=== PATIENT | female | born 1950 | race Caucasian/White ===

== ENCOUNTER → 2017-06-02 | Outpatient (CLI) | payer MEDICARE ==
--- NOTE | 2017-06-04 08:14 | MM ---
Reason for exam: screening (asymptomatic). Last mammogram was performed 1 year and 2 months ago. History: Patient is postmenopausal and is nulliparous. Family history of breast cancer in mother at age 85. Benign excisional biopsy of the right breast, November 13, 2006. Benign excisional biopsy of the left breast, 1994. Physical Findings: A clinical breast exam by your physician is recommended on an annual basis and results should be correlated with mammographic findings. MG 3D Screening Mammo W/Cad Bilateral CC and MLO view(s) were taken. Prior study comparison: April 10, 2016, bilateral MG 3d screening mammo w/cad. March 01, 2015, bilateral MG screening mammo w CAD. There are scattered fibroglandular densities. There is no discrete abnormality. No significant changes when compared with prior studies. ASSESSMENT: Negative, BI-RAD 1 RECOMMENDATION: Routine screening mammogram of both breasts in 1 year.
== END ==
LOC: RADMAMWWP 14:15
PROVIDERS: ATTEND Obstetrics & Gynecology
DX: Z12.31 Encounter for screening mammogram for malignant neoplasm of breast (principal); Z80.3 Family history of malignant neoplasm of breast
CPT/HCPCS: 77063; G0202

== ENCOUNTER → 2018-01-12 | Outpatient (CLI) | payer MEDICARE ==
[2018-01-12 10:09] LABS: Basophils % (A) 0 %; Eosinophils # (A) 0.2 k/uL (0-0.7); Eosinophils % (A) 3 %; HCT 38.5 % (34.0-46.0); Lymphocytes # (A) 1.8 k/uL (1.0-4.8); Lymphocytes % (A) 33 %; MCH 29.9 pg (25.0-35.0); MCHC 33.9 g/dL (31.0-37.0); MCV 88.2 fL (80.0-100.0); Mean Platelet Volume 6.3; Monocytes # (A) 0.2 k/uL (0-1.0); Monocytes % (A) 4 %; Neutrophils # (A) 3.1 k/uL (1.3-7.7); Neutrophils % (A) 57 %; Platelet Count 299 k/uL (150-450); RBC 4.36 m/uL (3.80-5.40); RDW 13.2 % (11.5-15.5); WBC 5.3 k/uL (3.8-10.6)
[2018-01-12 10:28] LABS: ALT 37 U/L (9-52); AST 23 U/L (14-36); Albumin 4.4 g/dL (3.5-5.0); Alkaline Phosphatase 53 U/L (38-126); Anion Gap 9 mmol/L; Blood Urea Nitrogen 18 mg/dL (7-17); Calcium 9.6 mg/dL (8.4-10.2); Carbon Dioxide 27 mmol/L (22-30); Chloride 104 mmol/L (98-107); Cholesterol 223 mg/dL (<200); Glucose 105 mg/dL (74-99); HDL Cholesterol 79 mg/dL (40-60); LDL Cholesterol,Calculated 129 mg/dL (0-99); Potassium 4.5 mmol/L (3.5-5.1); Sodium 140 mmol/L (137-145); Total Bilirubin 0.3 mg/dL (0.2-1.3); Total Protein 6.6 g/dL (6.3-8.2); Triglycerides 74 mg/dL (<150)
== END | disposition home or self-care (01) ==
LOC: LABWHC1 09:06
PROVIDERS: ATTEND Family Medicine
DX: Z00.01 Encounter for general adult medical examination with abnormal findings (principal); Z11.59 Encounter for screening for other viral diseases
CPT/HCPCS: 36415; 80053; 80061; 84443; 85025; 86803

== ENCOUNTER → 2018-07-30 | Outpatient (CLI) | payer MEDICARE ==
--- NOTE | 2018-07-30 13:11 | BD ---
EXAMINATION TYPE: Axial Bone Density DATE OF EXAM: 07/30/2018 COMPARISON: 04/10/2016 CLINICAL HISTORY: Height: 59.7 IN Weight: 149 LBS RISK FACTORS HISTORY OF: Active: YES Postmenopausal woman: AGE 48 MEDICATIONS: Additional Medications: VIT D, EXAM MEASUREMENTS: Bone mineral densitometry was performed using the [employer] System. Bone mineral density as measured about the Lumbar spine is: ----- L1-L4(G/cm2): 1.139 T Score Values are as follows: ----- L2: -0.3 ----- L3: 0.0 ----- L4: -0.1 ----- L1-L4: -0.3 Bone mineral density has: Decreased -2.4% since study of: 04/10/2016 Bone mineral density about the R hip (g/cm2): 0.820 Bone mineral density about the L hip (g/cm2): 0.767 T Score values are as follows: -----R Neck: -1.6 -----L Neck: -1.9 -----R Total: -0.6 -----L Total: -1.0 Bone mineral density has: Increased 1.3% since study of: 04/10/2016 IMPRESSION: Osteopenia left proximal femur. NOTE: T-SCORE=SD OF THE YOUNG ADULT MEAN.
--- NOTE | 2018-08-08 11:10 | MM ---
Reason for exam: screening (asymptomatic). Last mammogram was performed 1 year and 2 months ago. History: Patient is postmenopausal and is nulliparous. Family history of breast cancer in mother at age 85. Benign excisional biopsy of the right breast, November 13, 2006. Benign excisional biopsy of the left breast, 1994. MG 3D Screening Mammo W/Cad Bilateral CC and MLO view(s) were taken. Prior study comparison: June 02, 2017, bilateral MG 3d screening mammo w/cad. April 10, 2016, bilateral MG 3d screening mammo w/cad. The breast tissue is heterogeneously dense. This may lower the sensitivity of mammography. No discrete abnormality. ASSESSMENT: Negative, BI-RAD 1 RECOMMENDATION: Routine screening mammogram of both breasts in 1 year.
== END | disposition home or self-care (01) ==
LOC: RADMAMWWP 10:05
PROVIDERS: ATTEND Obstetrics & Gynecology
DX: Z12.31 Encounter for screening mammogram for malignant neoplasm of breast (principal); M85.852 Other specified disorders of bone density and structure, left thigh
CPT/HCPCS: 77063; 77067; 77080

== ENCOUNTER 2018-10-08 04:14 | Emergency (ER) | payer MEDICARE ==
--- NOTE | 2018-10-08 05:36 | XR ---
EXAM: XR Chest, 2 Views CLINICAL HISTORY: cough TECHNIQUE: Frontal and lateral views of the chest. COMPARISON: 07/28/15 FINDINGS: Lungs: Unremarkable. No consolidation. Pleural space: Unremarkable. No pneumothorax. Heart: Unremarkable. No cardiomegaly. Mediastinum: Unremarkable. Bones/joints: Unremarkable. IMPRESSION: Unremarkable 2 views of the chest
[2018-10-08] MEDS ORDERED: IBUPROFEN 600 MG STARTER PACK 4 TAB BTL PO STA (05:43)
--- NOTE | 2018-10-08 05:45 | ED ---
URI HPI - General Chief Complaint: Upper Respiratory Infection Stated Complaint: Upper Resp Source: patient Mode of arrival: ambulatory Limitations: no limitations - History of Present Illness Initial Comments: Juan Diego is a pleasant 67-year-old female who presents the emergency department today for evaluation of 5 days of fever, chills, cough, nasal congestion, rhinorrhea or sore throat and generalized body aches. Patient reports that the symptoms are worse around Thursday at which time she had a fever of 102 she was treating with Tylenol and drinking plenty of fluids. However symptoms have persisted which prompted her to come to the ER for evaluation and concern that she may be developing a pneumonia. Patient port she did get her flu vaccine this year. She has no significant past medical history no history of COPD asthma and she is a never smoker. - Related Data Previous Rx's Medication Instructions Recorded Levofloxacin [Levaquin] 500 mg PO DAILY #10 tab 07/28/15 Meclizine [Antivert] 25 mg PO TID #15 tab 07/28/15 Allergies Allergy/AdvReac Type Severity Reaction Status Date / Time azithromycin Allergy Unknown Verified 10/08/18 04:24 [From Zithromax Z-Alex] Review of Systems ROS Statement: Those systems with pertinent positive or pertinent negative responses have been documented in the HPI. ROS Other: All systems not noted in ROS Statement are negative. Past Medical History Past Medical History: No Reported History History of Any Multi-Drug Resistant Organisms: None Reported Past Surgical History: Appendectomy Past Psychological History: No Psychological Hx Reported Smoking Status: Never smoker Past Alcohol Use History: Occasional Past Drug Use History: None Reported General Exam - General Exam Comments Initial Comments: Physical Exam GENERAL: Patient is well-developed and well-nourished. Patient is nontoxic and well- hydrated and is in no distress. HENT: Normocephalic, Atraumatic. EYES: PERRL, EOMI PULMONARY: Unlabored respirations. No audible rales rhonchi or wheezing was noted. CARDIOVASCULAR: There is a regular rate and rhythm without any murmurs gallops or rubs. ABDOMEN: Soft and nontender with normal bowel sounds. SKIN: Flushed and very warm to the touch : Deferred NEUROLOGIC: Patient is alert and oriented x3. Moving all extremities spontaneously MUSCULOSKELETAL: Normal extremities with adequate strength and full range of motion. No lower extremity swelling or edema. No calf tenderness. PSYCHIATRIC: Normal psychiatric evaluation. Limitations: no limitations Limitations: no limitations Course Vital Signs 10/08/18 04:21 Temperature 99 F Pulse Rate 91 Respiratory 16 Rate Blood Pressure 136/68 O2 Sat by Pulse 94 L Oximetry Medical Decision Making - Medical Decision Making Patient was seen and evaluated history was obtained from patient History and physical are concerning for influenza however patient's symptoms have been present for 5 days she's not of candidate for Tamiflu Includes a is positive neck sign chest x-ray with no evidence of pneumonia next and results were discussed the patient is comfortable with the plan for discharge home continued outpatient supportive care. Patient was given Motrin while in the hospital for her fever. All questions pertaining care were answered return parameters were discussed infection control was discussed advised patient she is in fact contagious and should avoid contact with any pediatrics, elderly or immunocompromise patients. - Lab Data Lab Results 10/08/18 Range/Units 04:50 Influenza Type A RNA Detected H (Not Detectd) Influenza Type B (PCR) Not Detected (Not Detectd) Disposition Clinical Impression: Influenza Disposition: HOME SELF-CARE Condition: Good Instructions (If sedation given, give patient instructions): Upper Respiratory Infection (ED) Is patient prescribed a controlled substance at d/c from ED?: No Referrals: Erik Cortes MD [Primary Care Provider] - 1-2 days
[2018-10-08 05:52] VITALS: BP 117/73; PULSE 79; RESP 18; TEMP 99.4
== END 2018-10-08 05:55 | disposition home or self-care (01) ==
LOC: EC 04:14
DX: J10.1 Influenza due to other identified influenza virus with other respiratory manifestations (principal); Z88.1 Allergy status to other antibiotic agents
CPT/HCPCS: 71046; 87502; 99283

== ENCOUNTER 2018-12-08 14:23 | Emergency (ER) | payer MEDICARE ==
[2018-12-08] MEDS ORDERED: LIDOCAINE/EPINEPHR/TETRACAINE 5 ML BOTTLE TOPICAL ONE (15:08)
--- NOTE | 2018-12-08 15:11 | ED ---
General Adult HPI - General Chief complaint: Fall Stated complaint: fall Facial and rib injury Time Seen by Provider: 12/08/18 15:02 Source: patient Mode of arrival: ambulatory Limitations: no limitations - History of Present Illness Initial comments: Dictation was produced using [employer] dictation software. please excuse any grammatical, word or spelling errors. Chief Complaint: 68-year-old female with no significant past medical history presents with facial pain after fall. History of Present Illness: Patient is 68-year-old female presents today with facial pain after fall. Approximately 2 hours prior to arrival patient was walking her dog and dog abruptly moved causing her to trip and fall. Patient states she landed on her face. She complains of pain on her face and left anterior chest. She states that the pain in her chest is worse with palpation. Denies any crushing pressure-like symptoms and instead sharp pressure especially with deep inspiration and palpation. Patient states that she her pain is mostly localized to her nose. She states she did have some epistaxis however that has since resolved prior to arrival. Patient has no other complaints at this time. The ROS documented in this emergency department record has been reviewed and confirmed by me. Those systems with pertinent positive or negative responses have been documented in the HPI. All other systems are other negative and/or n oncontributory. PHYSICAL EXAM: General Impression: Alert and oriented x3, not in acute distress HEENT: extra-ocular movements intact, pupils equal and reactive to light bilaterally, mucous membranes moist, left naris nasal septal hematoma, bruising and swelling to the bridge of the nose, TMs are clear without any signs of hemotympanum, no diplopia, Cardiovascular: Heart regular rate and rhythm, S1&S2 audible, no murmurs, rubs or gallops Chest: Lungs clear to auscultation bilaterally, no rhonchi, no wheeze, no rales, there is a palpation of the left anterior chest Abdomen: Bowel sounds present, abdomen soft, non-tender, non-distended, no organomegaly Musculoskeletal: Pulses present and equal in all extremities, no peripheral edema Motor: no focal deficits noted Neurological: CN II-XII grossly intact, no focal motor or sensory deficits noted Skin: Intact with no visualized rashes Psych: Normal affect and mood ED course: 68 year old female presents with facial pain and left-sided chest pain status post fall vital signs upon arrival are within acceptable limits. Patient does have findings of nasal septal hematoma at the left naris. Laboratory evaluation obtained. CBC, coag panel, metabolic panel is unremarkable. Computed tomography scan of the brain, chest x-ray and face CT w as obtained showing no acute processes. However have chest x-rays showing patchy left basilar atelectasis and/or infiltrate. Patient not having any respiratory symptoms. This is likely atelectasis. Discussed patient case with Dr. Calvillo ENT technical assistance consultant given that we do not have all the supplies to perform nasal septal hematoma drainage materials and for advice on alternative methods. Recommends that incision and bilateral naris packing be performed. Did not feel the need for hematoma packing. Patient tolerated procedure well. Blade was use to incise hematoma. Small amount of blood was retrieved and suction. Patient's nose was packed with short Merocel. Patient discharged and told to follow-up with ENT in 2448 hrs. Patient is understandable and agreement with plan. Patient given prescription for antibiotics. EKG interpretation: Ventricular rate 66, normal sinus rhythm, KS interval 166, QS 82, QTc 440. No KS prolongation, no QTC prolongation, no ST or T-wave changes noted. Overall, this EKG is unremarkable - Related Data Previous Rx's Medication Instructions Recorded Amoxic-Pot Clav 875-125Mg 1 tab PO Q12HR #10 tablet 12/08/18 [Augmentin 875-125] Allergies Allergy/AdvReac Type Severity Reaction Status Date / Time azithromycin Allergy Unknown Verified 12/08/18 14:42 [From Zithromax Z-Alex] latex Allergy Rash/Hives Verified 12/08/18 15:33 Review of Systems ROS Statement: Those systems with pertinent positive or pertinent negative responses have been documented in the HPI. ROS Other: All systems not noted in ROS Statement are negative. Past Medical History Past Medical History: No Reported History History of Any Multi-Drug Resistant Organisms: None Reported Past Surgical History: Appendectomy Past Psychological History: No Psychological Hx Reported Smoking Status: Never smoker Past Alcohol Use History: Occasional Past Drug Use History: None Reported General Exam Limitations: no limitations Course Vital Signs 12/08/18 14:39 Temperature 97.6 F Pulse Rate 73 Respiratory 20 Rate Blood Pressure 141/82 O2 Sat by Pulse 99 Oximetry Medical Decision Making - Lab Data Result diagrams: 12/08/18 15:17 12/08/18 15:17 Lab Results 12/08/18 12/08/18 12/08/18 Range/Units 15:17 15:17 15:17 WBC 6.1 (3.8-10.6) k/uL RBC 4.48 (3.80-5.40) m/uL Hgb 12.9 (11.4-16.0) gm/dL Hct 39.3 (34.0-46.0) % MCV 87.8 (80.0-100.0) fL MCH 28.9 (25.0-35.0) pg MCHC 32.9 (31.0-37.0) g/dL RDW 13.5 (11.5-15.5) % Plt Count 325 (150-450) k/uL Neutrophils % 58 % Lymphocytes % 32 % Monocytes % 4 % Eosinophils % 3 % Basophils % 0 % Neutrophils # 3.5 (1.3-7.7) k/uL Lymphocytes # 2.0 (1.0-4.8) k/uL Monocytes # 0.3 (0-1.0) k/uL Eosinophils # 0.2 (0-0.7) k/uL Basophils # 0.0 (0-0.2) k/uL PT (9.0-12.0) sec INR (<1.2) Sodium 138 (137-145) mmol/L Potassium 4.1 (3.5-5.1) mmol/L Chloride 107 (98-107) mmol/L Carbon Dioxide 27 (22-30) mmol/L Anion Gap 4 mmol/L BUN 14 (7-17) mg/dL Creatinine 0.44 L (0.52-1.04) mg/dL Est GFR (CKD-EPI)AfAm >90 (>60 ml/min/1.73 sqM) Est GFR (CKD-EPI)NonAf >90 (>60 ml/min/1.73 sqM) Glucose 94 (74-99) mg/dL Calcium 10.1 (8.4-10.2) mg/dL Blood Type A Positive Blood Type Confirm Blood Type Recheck CABO Indicated Antibody Screen NEGATIVE Spec Expiration Date 12/11/2018 - 231612/08/18 12/08/18 Range/Units 15:17 16:05 WBC (3.8-10.6) k/uL RBC (3.80-5.40) m/uL Hgb (11.4-16.0) gm/dL Hct (34.0-46.0) % MCV (80.0-100.0) fL MCH (25.0-35.0) pg MCHC (31.0-37.0) g/dL RDW (11.5-15.5) % Plt Count (150-450) k/uL Neutrophils % % Lymphocytes % % Monocytes % % Eosinophils % % Basophils % % Neutrophils # (1.3-7.7) k/uL Lymphocytes # (1.0-4.8) k/uL Monocytes # (0-1.0) k/uL Eosinophils # (0-0.7) k/uL Basophils # (0-0.2) k/uL PT 10.3 (9.0-12.0) sec INR 1.0 (<1.2) Sodium (137-145) mmol/L Potassium (3.5-5.1) mmol/L Chloride (98-107) mmol/L Carbon Dioxide (22-30) mmol/L Anion Gap mmol/L BUN (7-17) mg/dL Creatinine (0.52-1.04) mg/dL Est GFR (CKD-EPI)AfAm (>60 ml/min/1.73 sqM) Est GFR (CKD-EPI)NonAf (>60 ml/min/1.73 sqM) Glucose (74-99) mg/dL Calcium (8.4-10.2) mg/dL Blood Type Blood Type Confirm A Positive Blood Type Recheck Antibody Screen Spec Expiration Date Disposition Clinical Impression: Fall, Nasal septal hematoma Disposition: HOME SELF-CARE Condition: Good Instructions (If sedation given, give patient instructions): Facial Contusion (ED) Additional Instructions: follow up with ENT in 24 to 48 hours per recommendation by Dr. Calvillo (ENT) Prescriptions: Amoxic-Pot Clav 875-125Mg [Augmentin 875-125] 1 tab PO Q12HR #10 tablet Is patient prescribed a controlled substance at d/c from ED?: No Referrals: Ryan Keane MD [STAFF PHYSICIAN] - 1-2 days Aleksander Murray DO [Doctor of Osteopathic Medicine] - 1-2 days Noah Chiang MD [STAFF PHYSICIAN] - 1-2 days Time of Disposition: 17:11
[2018-12-08 15:33] LABS: Basophils % (A) 0 %; Eosinophils # (A) 0.2 k/uL (0-0.7); Eosinophils % (A) 3 %; HCT 39.3 % (34.0-46.0); HGB 12.9 gm/dL (11.4-16.0); Lymphocytes % (A) 32 %; MCH 28.9 pg (25.0-35.0); MCHC 32.9 g/dL (31.0-37.0); MCV 87.8 fL (80.0-100.0); Mean Platelet Volume 6.3; Monocytes # (A) 0.3 k/uL (0-1.0); Monocytes % (A) 4 %; Neutrophils # (A) 3.5 k/uL (1.3-7.7); Neutrophils % (A) 58 %; Platelet Count 325 k/uL (150-450); RBC 4.48 m/uL (3.80-5.40); RDW 13.5 % (11.5-15.5); WBC 6.1 k/uL (3.8-10.6)
[2018-12-08 15:42] LABS: Anion Gap 4 mmol/L; Blood Urea Nitrogen 14 mg/dL (7-17); Calcium 10.1 mg/dL (8.4-10.2); Carbon Dioxide 27 mmol/L (22-30); Chloride 107 mmol/L (98-107); Glucose 94 mg/dL (74-99); Potassium 4.1 mmol/L (3.5-5.1); Sodium 138 mmol/L (137-145)
[2018-12-08 15:43] LABS: Prothrombin Time 10.3 sec (9.0-12.0)
--- NOTE | 2018-12-08 15:43 | CT ---
EXAMINATION TYPE: CT brain wo con, CT facial bones wo con DATE OF EXAM: 12/08/2018 HISTORY: Headache, nasal swelling and bruising post fall injury today CT DLP: 1322.6 mGycm. Automated Exposure Control for Dose Reduction was Utilized. TECHNIQUE: CT scan of the head and facial bones are performed without contrast. COMPARISON: None. FINDINGS: There is no acute intracranial hemorrhage or midline shift identified. Ventricles and sul ci are normal in size for patient's age. Macias-white matter differentiation is preserved. The calvariu m is intact. Nasal bones are intact. Orbital floors and richards are intact bilaterally. The globes are intact bilate rally. Intraconal fat is preserved. Zygomatic arches are intact bilaterally. Mandible is intact. Temporomandibular joints are maintained bilaterally. Pterygoid plates are intact. Visualized paranasal sinuses show mild mucosal thickening inferiorly in right maxillary sinus otherwi se are clear. No suspicious air-fluid levels are present. IMPRESSION: 1. No acute intracranial hemorrhage or midline shift. 2. No acute displaced facial bone fracture or dislocation.
--- NOTE | 2018-12-08 16:23 | XR ---
EXAMINATION TYPE: XR chest 2V DATE OF EXAM: 12/08/2018 CLINICAL HISTORY: Chest pain after fall injury. TECHNIQUE: Frontal and lateral views of the chest are obtained. COMPARISON: None FINDINGS: There is persistent patchy left basilar opacity. Right lung remains clear. No pleural effu melanie or pneumothorax is seen bilaterally. The cardiac silhouette size remains within normal limits. The osseous structures are intact. IMPRESSION: Patchy left basilar atelectasis and/or infiltrate.
[2018-12-08] MEDS ORDERED: LIDOCAINE 1% INJ 10MG/ML (20 ML MDV) SQ ONE (16:53)
[2018-12-08 17:24] VITALS: BP 135/85; PULSE 59; RESP 18; TEMP 97.7
== END 2018-12-08 17:20 | disposition home or self-care (01) ==
LOC: EC 14:23
DX: S00.33XA Contusion of nose, initial encounter (principal); Z88.1 Allergy status to other antibiotic agents; Z91.040 Latex allergy status; W01.198A Fall on same level from slipping, tripping and stumbling with subsequent striking against other object, initial encounter; Y93.K1 Activity, walking an animal
CPT/HCPCS: 36415; 86900; 86901; 80048; 85025; 85610; 86850; 71046; 70486; 70450; 99284; 10140; J2001

== ENCOUNTER → 2019-01-10 | Outpatient (CLI) | payer MEDICARE ==
[2019-01-10 16:42] LABS: LDL Cholesterol,Calculated 142.2 mg/dL (0.0-131.0); VLDL Calculation 16.8 mg/dL (5.00-40.00)
[2019-01-10 17:54] LABS: Hemoglobin A1C 5.9 % (4.0-6.0)
== END | disposition home or self-care (01) ==
LOC: LABWHC1 08:49
PROVIDERS: ATTEND Family Medicine
DX: Z13.220 Encounter for screening for lipoid disorders (principal); Z13.1 Encounter for screening for diabetes mellitus
CPT/HCPCS: 36415; 80061; 83036; 84443

== ENCOUNTER → 2019-06-17 | Outpatient (CLI) | payer MEDICARE ==
--- NOTE | 2019-06-19 14:08 | US ---
EXAMINATION TYPE: US transvaginal DATE OF EXAM: 06/17/2019 COMPARISON: NONE CLINICAL HISTORY: 68-year-old female ABD BLOATING R14.0. TECHNIQUE: Transvaginal sonographic images were medically necessary to better assess the following a natomy: Uterus and ovaries. FINDINGS: EXAM MEASUREMENTS: Uterus: 6.5 x 3.5 x 4.2 cm Endometrial Stripe: Not visualized due to fibroids. 1. Uterus: Anteverted, Fibroids seen largest measuring 2.4 x 2.6 x 2.4 cm. There is diffuse myome trial heterogeneity. 3. Right Ovary: Obscured by overlying bowel gas 4. Left Ovary: Obscured by overlying bowel gas 5. Bilateral Adnexa: wnl 6. Posterior cul-de-sac: wnl IMPRESSION: Very heterogeneous myometrium. Suspect a submucosal, centrally located 2.6 cm fibroid. This completel y obscures the endometrial stripe. Unable to exclude any abnormal thickening. If more detailed assess ment of the junctional anatomy is desired, consider female pelvic MRI. Neither ovary could be visualized. No pelvic free fluid.
== END ==
LOC: RADUSWWP 16:17
PROVIDERS: ATTEND Obstetrics & Gynecology
DX: R93.49 Abnormal radiologic findings on diagnostic imaging of other urinary organs (principal)
CPT/HCPCS: 76830

== ENCOUNTER → 2019-09-02 | Outpatient (CLI) | payer MEDICARE ==
--- NOTE | 2019-09-06 10:19 | MM ---
Reason for exam: screening (asymptomatic). Last mammogram was performed 1 year and 1 month ago. History: Patient is postmenopausal and is nulliparous. Family history of breast cancer in mother at age 85. Benign excisional biopsy of the right breast, November 13, 2006. Benign excisional biopsy of the left breast, 1994. Physical Findings: A clinical breast exam by your physician is recommended on an annual basis and results should be correlated with mammographic findings. MG 3D Screening Mammo W/Cad Bilateral CC and MLO view(s) were taken. Prior study comparison: July 30, 2018, bilateral MG 3d screening mammo w/cad. June 02, 2017, bilateral MG 3d screening mammo w/cad. The breast tissue is heterogeneously dense. This may lower the sensitivity of mammography. No significant changes when compared with prior studies. ASSESSMENT: Benign, BI-RAD 2 RECOMMENDATION: Routine screening mammogram of both breasts in 1 year.
== END | disposition home or self-care (01) ==
LOC: RADMAMWWP 11:23
PROVIDERS: ATTEND Obstetrics & Gynecology
DX: Z12.31 Encounter for screening mammogram for malignant neoplasm of breast (principal)
CPT/HCPCS: 77063; 77067

== ENCOUNTER → 2020-10-03 | Outpatient (CLI) | payer MEDICARE ==
--- NOTE | 2020-10-05 11:45 | MM ---
Reason for exam: screening (asymptomatic). Last mammogram was performed 1 year and 1 month ago. History: Patient is postmenopausal and is nulliparous. Family history of breast cancer in mother at age 85. Benign excisional biopsy of the right breast, November 13, 2006. Benign excisional biopsy of the left breast, 1994. Physical Findings: A clinical breast exam by your physician is recommended on an annual basis and results should be correlated with mammographic findings. MG 3D Screening Mammo W/Cad Bilateral CC and MLO view(s) were taken. Prior study comparison: September 02, 2019, bilateral MG 3d screening mammo w/cad. July 30, 2018, bilateral MG 3d screening mammo w/cad. The breast tissue is heterogeneously dense. This may lower the sensitivity of mammography. No significant changes when compared with prior studies. ASSESSMENT: Negative, BI-RAD 1 RECOMMENDATION: Routine screening mammogram of both breasts in 1 year.
--- NOTE | 2020-10-05 16:54 | BD ---
EXAMINATION TYPE: Axial Bone Density DATE OF EXAM: 10/03/2020 COMPARISON: 07/30/2018 CLINICAL HISTORY: Postmenopausal screening Height: 59.5 IN Weight: 160 LBS RISK FACTORS HISTORY OF: Active: YES Postmenopausal woman: AGE 48 MEDICATIONS: Additional Medications: VIT D, CALCIUM, EXAM MEASUREMENTS: Bone mineral densitometry was performed using the [employer] System. Bone mineral density as measured about the Lumbar spine is: ----- L1-L4(G/cm2): 1.116 T Score Values are as follows: ----- L2: -0.5 ----- L3: -0.3 ----- L4: -0.5 ----- L1-L4: -0.5 Bone mineral density has: Decreased -3.1% since study of: 07/30/2018 Bone mineral density about the R hip (g/cm2): 0.818 Bone mineral density about the L hip (g/cm2): 0.726 T Score values are as follows: -----R Neck: -1.6 -----L Neck: -2.2 -----R Total: -0.6 -----L Total: -1.1 Bone mineral density has: Decreased -1.3% since study of: 07/30/2018 IMPRESSION: Osteopenia (T Score between -2.5 and -1). There is slightly increased risk of fracture and the patient may be considered for treatment. Re-Screen 2-5 years. NOTE: T-SCORE=SD OF THE YOUNG ADULT MEAN.
== END | disposition home or self-care (01) ==
LOC: RADMAMWWP 15:55
PROVIDERS: ATTEND Obstetrics & Gynecology
DX: Z12.31 Encounter for screening mammogram for malignant neoplasm of breast (principal); M85.80 Other specified disorders of bone density and structure, unspecified site
CPT/HCPCS: 77063; 77067; 77080

== ENCOUNTER → 2020-10-26 | Outpatient (CLI) | payer MEDICARE ==
[2020-10-26 11:26] LABS: Basophils # (A) 0.03 X 10*3/uL (0.00-0.10); Basophils % (A) 0.3 %; Eosinophils # (A) 0.31 X 10*3/uL (0.04-0.35); Eosinophils % (A) 3.5 %; HCT 43.6 % (37.2-46.3); HGB 14.1 g/dL (12.0-15.0); Lymphocytes # (A) 3.46 X 10*3/uL (0.90-5.00); Lymphocytes % (A) 38.7 %; MCH 29.4 pg (27.0-32.0); MCHC 32.3 g/dL (32.0-37.0); Mean Platelet Volume 8.9 fL (9.5-12.2); Monocytes % (A) 7.8 %; Neutrophils % (A) 49.3 %; Platelet Count 371 X 10*3/uL (140-440); RBC 4.79 X 10*6/uL (4.10-5.20); RDW 13.6 % (11.5-14.5); WBC 8.94 X 10*3/uL (4.50-10.00)
[2020-10-26 11:29] LABS: Albumin 4.6 g/dL (3.80-4.90); Albumin/Globulin Ratio 2.56 (1.60-3.17); Anion Gap 8.6 mmol/L (4.00-12.00); BUN/Creat Ratio 32.86 Ratio (12.00-20.00); Calcium 9.7 mg/dL (8.7-10.3); Carbon Dioxide 28.4 mmol/L (21.6-31.8); Chol/HDL Ratio 2.92; Globulin 1.8 g/dL (1.6-3.3); LDL Cholesterol,Calculated 114.2 mg/dL (0.0-131.0); Non-African American GFR(CKD) 87.2 (60.0-200.0); Potassium 4.2 mmol/L (3.5-5.5); Total Bilirubin 0.4 mg/dL (0.3-1.2); Total Protein 6.4 g/dL (6.2-8.2); VLDL Calculation 23.8 mg/dL (5.00-40.00)
[2020-10-26 16:28] LABS: Hemoglobin A1C 6.1 % (4.0-6.0)
== END | disposition home or self-care (01) ==
LOC: LABWHC1 07:23
PROVIDERS: ATTEND Family Medicine
DX: Z00.01 Encounter for general adult medical examination with abnormal findings (principal); Z13.220 Encounter for screening for lipoid disorders; Z13.1 Encounter for screening for diabetes mellitus
CPT/HCPCS: 36415; 80053; 80061; 83036; 84443; 85025

== ENCOUNTER 2021-02-06 04:38 | Emergency (ER) | payer MEDICARE ==
[2021-02-06 04:47] VITALS: BP 110/57; PULSE 69; RESP 18; TEMP 97.8
[2021-02-06] MEDS ORDERED: DIPH,PERTUS(ACELL)TETVAC-LF 0.5 ML VIAL IM ONE (04:50)
[2021-02-06] MEDS ORDERED: AMOXIC-POT CLAV 875MG STARTER PACK 2 TAB BTL PO STA (04:58)
--- NOTE | 2021-02-06 05:00 | ED ---
Animal Bite HPI - General Chief Complaint: Skin/Abscess/Foreign Body Stated Complaint: Cat scratches Source: patient Mode of arrival: ambulatory Limitations: no limitations - History of Present Illness Initial Comments: This patient is 70-year-old woman who presents with complaint that she was scratched and bitten by her own cat tonharsha a little after 7 PM. He states that the animal was caught in a car door and that it scratched and bit when she tried to handle the animal. Complaint: animal bite Onset/Timin -: hour(s) Left: Forearm, Hand, Right: Forearm, Hand Animal: cat Description: household pet, immunizations UTD Mechanism: bite, scratch Context: provoked Associated Symptoms: none Treatments Prior to Arrival: irrigation, antibiotic ointment - Related Data Patient Tetanus UTD: No Previous Rx's Medication Instructions Recorded Amoxic-Pot Clav 875-125Mg 1 tab PO Q12HR #10 tablet 12/08/18 [Augmentin 875-125] Amoxicillin/Potassium Clav 1 tab PO Q12HR 1 Days #14 tab 02/06/21 [Augmentin 875-125 Tablet] Allergies Allergy/AdvReac Type Severity Reaction Status Date / Time azithromycin Allergy Unknown Verified 02/06/21 04:47 [From Zithromax Z-Alex] latex Allergy Rash/Hives Verified 02/06/21 04:47 Review of Systems ROS Statement: Those systems with pertinent positive or pertinent negative responses have been documented in the HPI. ROS Other: All systems not noted in ROS Statement are negative. Constitutional: Denies: fever, chills Skin: Reports: as per HPI, lesions Neurological: Denies: weakness, numbness Hematological/Lymphatic: Denies: easy bleeding Past Medical History Past Medical History: No Reported History History of Any Multi-Drug Resistant Organisms: None Reported Past Surgical History: Appendectomy Past Psychological History: No Psychological Hx Reported Smoking Status: Never smoker Past Alcohol Use History: Occasional Past Drug Use History: None Reported General Exam Limitations: no limitations General appearance: alert, in no apparent distress Neurological exam: Absent: motor sensory deficit Skin exam: Present: warm, dry, abrasion, other (Patient has multiple abrasions and puncture wounds to the bilateral forearms and hands, as well as the left thigh area.) Course Vital Signs 02/06/21 04:45 Temperature 97.8 F Pulse Rate 69 Respiratory 18 Rate Blood Pressure 110/57 O2 Sat by Pulse 97 Oximetry Disposition Clinical Impression: Cat bite Disposition: HOME SELF-CARE Condition: Good Instructions (If sedation given, give patient instructions): Animal Bite (ED) Prescriptions: Amoxicillin/Potassium Clav [Augmentin 875-125 Tablet] 1 tab PO Q12HR 1 Days #14 tab Is patient prescribed a controlled substance at d/c from ED?: No Referrals: Erik Cortes MD [Primary Care Provider] - 1-2 days
== END 2021-02-06 05:15 | disposition home or self-care (01) ==
LOC: EC 04:38
DX: S51.831A Puncture wound without foreign body of right forearm, initial encounter (principal); S51.832A Puncture wound without foreign body of left forearm, initial encounter; S61.432A Puncture wound without foreign body of left hand, initial encounter; S61.431A Puncture wound without foreign body of right hand, initial encounter; S71.132A Puncture wound without foreign body, left thigh, initial encounter; Z23 Encounter for immunization; W55.01XA Bitten by cat, initial encounter
CPT/HCPCS: 90471; 90715; 99283

== ENCOUNTER 2021-02-07 00:42 | Observation (INO) | payer MEDICARE ==
[2021-02-07] MEDS ORDERED: HYDROcodone/APAP 5-325MG 1 EACH TAB PO STA (01:50)
--- NOTE | 2021-02-07 02:17 | XR ---
EXAMINATION TYPE: XR hand complete LT DATE OF EXAM: 02/07/2021 COMPARISON: NONE HISTORY: Cat scratches. Cat bite to the left hand. TECHNIQUE: 3 views FINDINGS: Metacarpals are intact. There is narrowing and spurring at the IP joints of all the digits. There is relative sparing of the thumb. There are no erosions. There is no subluxation. I see no evidence of a foreign body. 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 No fracture seen. No evidence of osteomyelitis.
--- NOTE | 2021-02-07 02:41 | ED ---
Skin/Abscess/FB HPI - General Chief complaint: Skin/Abscess/Foreign Body Stated complaint: Cat scratches- revisit Time Seen by Provider: 02/07/21 01:34 Source: patient, family Mode of arrival: ambulatory Limitations: no limitations - History of Present Illness Initial comments: This patient is 70-year-old woman who presents to have reevaluation of her hand which was bitten by cat. Patient was seen here, started on Augmentin, but states that her hand has had increased pain and swelling despite taking the prescribed medication. She has not noticed systemic symptoms. No fever or chills. No chest pain, dyspnea, palpitations. MD complaint: other (Bite) Onset/Timin -: hour(s) Tetanus Up to Date: yes Location: L hand Severity: severe Quality: aching Consistency: constant Improves with: none Worsens with: movement Context: none Associated symptoms: denies other symptoms - Related Data Previous Rx's Medication Instructions Recorded Acetaminophen Tab [Tylenol] 650 mg PO Q6HR PRN #30 tab 02/08/21 Amoxicillin/Potassium Clav 1 tab PO Q12HR 10 Days #20 tab 02/08/21 [Augmentin 875-125 Tablet] Famotidine [Pepcid] 20 mg PO BID #30 tab 02/08/21 Ketorolac [Toradol] 10 mg PO Q6HR PRN #12 tab 02/08/21 Allergies Allergy/AdvReac Type Severity Reaction Status Date / Time azithromycin Allergy Unknown Verified 02/07/21 08:15 [From Zithromax Z-Alex] latex Allergy Rash/Hives Verified 02/07/21 08:15 Review of Systems ROS Statement: Those systems with pertinent positive or pertinent negative responses have been documented in the HPI. ROS Other: All systems not noted in ROS Statement are negative. Constitutional: Denies: fever, chills Respiratory: Denies: cough, dyspnea Cardiovascular: Denies: chest pain, palpitations, edema Gastrointestinal: Denies: abdominal pain, vomiting Skin: Reports: as per HPI, lesions Neurological: Denies: headache Past Medical History Past Medical History: No Reported History History of Any Multi-Drug Resistant Organisms: None Reported Past Surgical History: Appendectomy Past Psychological History: No Psychological Hx Reported Smoking Status: Never smoker Past Alcohol Use History: Occasional Past Drug Use History: None Reported General Exam Limitations: no limitations General appearance: alert, in no apparent distress Head exam: Present: atraumatic, normocephalic Eye exam: Present: normal appearance. Absent: scleral icterus, conjunctival injection Respiratory exam: Present: normal lung sounds bilaterally. Absent: respiratory distress, wheezes, rales, rhonchi, stridor Cardiovascular Exam: Present: regular rate, normal rhythm, normal heart sounds. Absent: systolic murmur, diastolic murmur, rubs, gallop GI/Abdominal exam: Present: soft. Absent: tenderness Extremities exam: Present: normal inspection, normal capillary refill. Absent: pedal edema, calf tenderness Back exam: Present: normal inspection. Absent: CVA tenderness (R), CVA tenderness (L) Neurological exam: Present: alert Skin exam: Present: warm, dry, normal color Course Vital Signs 02/07/21 02/07/21 02/07/21 00:45 01:40 04:04 Temperature 98.8 F 98.3 F Pulse Rate 83 65 66 Respiratory 20 18 18 Rate Blood Pressure 128/69 112/70 110/59 O2 Sat by Pulse 97 96 95 Oximetry Medical Decision Making - Lab Data Result diagrams: 02/08/21 05:49 02/08/21 05:49 Disposition Clinical Impression: Cat bite Disposition: ADMITTED IP TO THIS [facility] Condition: Good Is patient prescribed a controlled substance at d/c from ED?: Yes When asked, does pt state using other controlled substances?: No If prescribed controlled substance>3 days was MAPS reviewed?: Prescribed <3 Days If opioid is for acute pain is fill amount 7 days or less?: No If Rx opioid, was Start Talking consent form obtained?: No
[2021-02-07] MEDS ORDERED: NALOXONE 0.4 MG/ML 1 ML VIAL IV PRN (03:02)
[2021-02-07] MEDS ORDERED: AMPICILLIN-SULBACTAM 3 GM in SODIUM CHLORIDE 0.9% 100 ML IVPB STA (03:04)
[2021-02-07] MEDS ORDERED: MORPHINE SULFATE 4 MG/ML SYRINGE IV STA (03:04)
[2021-02-07] MEDS: SODIUM CHLORIDE 0.9% 1,000 ML IV SCH ×2 (03:42→18:21)
[2021-02-07 04:00] LABS: Basophils % (A) 0 %; Eosinophils # (A) 0.1 k/uL (0-0.7); Eosinophils % (A) 0 %; HCT 36.7 % (34.0-46.0); Lymphocytes # (A) 1.3 k/uL (1.0-4.8); Lymphocytes % (A) 9 %; MCH 30.9 pg (25.0-35.0); MCHC 35.4 g/dL (31.0-37.0); MCV 87.3 fL (80.0-100.0); Monocytes # (A) 0.7 k/uL (0-1.0); Monocytes % (A) 5 %; Neutrophils # (A) 11.4 k/uL (1.3-7.7); Neutrophils % (A) 84 %; Platelet Count 273 k/uL (150-450); RBC 4.21 m/uL (3.80-5.40); RDW 12.9 % (11.5-15.5); WBC 13.5 k/uL (3.8-10.6)
[2021-02-07 04:08] LABS: African American GFR (CKD) >90 (>60 ml/min/1.73 sqM); Anion Gap 8 mmol/L; Blood Urea Nitrogen 12 mg/dL (7-17); Calcium 9.2 mg/dL (8.4-10.2); Carbon Dioxide 22 mmol/L (22-30); Chloride 102 mmol/L (98-107); Glucose 130 mg/dL (74-99); Non-African American GFR(CKD) >90 (>60 ml/min/1.73 sqM); Potassium 4.2 mmol/L (3.5-5.1); Sodium 132 mmol/L (137-145)
[2021-02-07 05:19] LABS: Erythrocyte Sedimentation Rate 23 mm/hr (0-20)
[2021-02-07] MEDS: ACETAMINOPHEN TAB 325 MG TAB PO PRN ×2 (10:18→22:34)
[2021-02-07] MEDS ORDERED: AMPICILLIN-SULBACTAM 3 GM in SODIUM CHLORIDE 0.9% 100 ML IVPB SCH (12:00)
--- NOTE | 2021-02-07 15:36 | P.HPIM ---
History of Present Illness Patient is a very pleasant 70-year-old female is admitted the for cat scratch cellulitis and cat bite cellulitis. Patient the had this cat scratches and cat bite that happened about couple days ago, patient came to ER yesterday was given Augmentin was discharged home because of her uncontrolled pain patient came back again patient was subsequently admitted given a dose of Unasyn. Patient doesn't have any obvious abscess patient has scratches in both bilateral upper extremities as well as one of the lower extremities. Mostly appears to be scratches rather than bites. Patient denied any history of MRSA in the past patient does have leukocytosis. Patient is mildly hyponatremic. Patient had a x-ray of the left hand which showed osteoarthritis. REVIEW OF SYSTEMS: CONSTITUTIONAL: No fever, no malaise, no fatigue. HEENT: No recent visual problems or hearing problems. Denied any sore throat. CARDIOVASCULAR: No chest pain, orthopnea, PND, no palpitations, no syncope. PULMONARY: No shortness of breath, no cough, no hemoptysis. GASTROINTESTINAL: No diarrhea, no nausea, no vomiting, no abdominal pain. NEUROLOGICAL: No headaches, no weakness, no numbness. HEMATOLOGICAL: Denies any bleeding or petechiae. GENITOURINARY: Denies any burning micturition, frequency, or urgency. MUSCULOSKELETAL/RHEUMATOLOGICAL: Denies any joint pain, swelling, or any muscle pain. ENDOCRINE: Denies any polyuria or polydipsia. The rest of the 14-point review of systems is negative. PHYSICAL EXAMINATION: GENERAL: The patient is alert and oriented x3, not in any acute distress. Well developed, well nourished. HEENT: Pupils are round and equally reacting to light. EOMI. No scleral icterus. No conjunctival pallor. Normocephalic, atraumatic. No pharyngeal erythema. No thyromegaly. CARDIOVASCULAR: S1 and S2 present. No murmurs, rubs, or gallops. PULMONARY: Chest is clear to auscultation, no wheezing or crackles. ABDOMEN: Soft, nontender, nondistended, normoactive bowel sounds. No palpable organomegaly. MUSCULOSKELETAL: No joint swelling or deformity. EXTREMITIES: No cyanosis, clubbing, or pedal edema. She has multiple scratches in both hands with some muscular light is no abscess patient has some scratches in the lower extremity is as well. NEUROLOGICAL: Gross neurological examination did not reveal any focal deficits. SKIN: No rashes. Assessment and plan -Cat scratch cellulitis patient is presently on Unasyn which will be continued patient never had an MRSA. Patient to probably need to be covered for skin glenny patient didn't have any obvious is cat bites. Infectious disease will be consulted. Patient will be monitored overnight if clinically doing well patient will be discharged tomorrow we will use anti-inflammatory is for pain along with GI prophylaxis -hypervolemic hyponatremia: Patient will be continued on IV fluids -Leukocytosis due to assessment #1 DVT prophylaxis: Lovenox Past Medical History Past Medical History: No Reported History History of Any Multi-Drug Resistant Organisms: None Reported Past Surgical History: Appendectomy, Tonsillectomy Past Anesthesia/Blood Transfusion Reactions: No Reported Reaction Past Psychological History: No Psychological Hx Reported Smoking Status: Never smoker Past Alcohol Use History: Occasional Past Drug Use History: None Reported Medications and Allergies Home Medications Medication Instructions Recorded Confirmed Type Amoxicillin/Potassium Clav 1 tab PO Q12HR 1 Days #14 tab 02/06/21 02/07/21 Rx [Augmentin 875-125 Tablet] Allergies Allergy/AdvReac Type Severity Reaction Status Date / Time azithromycin Allergy Unknown Verified 02/07/21 08:15 [From Zithromax Z-Alex] latex Allergy Rash/Hives Verified 02/07/21 08:15 Physical Exam Vitals: Vital Signs Temp Pulse Pulse Resp BP BP Pulse Ox 02/07/21 14:37 99.1 F 88 16 108/69 94 L 02/07/21 07:00 98.2 F 68 16 115/69 98 02/07/21 05:09 98.8 F 69 18 111/72 96 02/07/21 04:04 98.3 F 66 18 110/59 95 02/07/21 01:40 65 18 112/70 96 02/07/21 00:45 98.8 F 83 20 128/69 97 Intake and Output 02/07/21 02/07/21 02/07/21 06:59 14:59 22:59 Intake Total 240 Balance 240 Intake: Oral 240 Other: Voiding Method Toilet # Voids 1 Weight 68.039 kg Results CBC & Chem 7: 02/07/21 03:30 02/07/21 03:30 Labs: Abnormal Lab Results - Last 24 Hours (Table) 02/07/21 02/07/21 Range/Units 03:30 03:30 WBC 13.5 H (3.8-10.6) k/uL Neutrophils # 11.4 H (1.3-7.7) k/uL ESR 23 H (0-20) mm/hr Sodium 132 L (137-145) mmol/L Creatinine 0.37 L (0.52-1.04) mg/dL Glucose 130 H (74-99) mg/dL Thrombosis Risk Factor Assmnt - Choose All That Apply Any of the Below Risk Factors Present?: No Each Risk Factor Represents 2 Points: Age 61-74 years Other congenital or acquired thrombophilia - If yes, enter type in comment: No Thrombosis Risk Factor Assessment Total Risk Factor Score: 2 Thrombosis Risk Factor Assessment Level: Low Risk
[2021-02-07] MEDS: AMPICILLIN-SULBACTAM 3 GM in SODIUM CHLORIDE 0.9% 100 ML IVPB SCH (18:21)
[2021-02-07] MEDS: FAMOTIDINE 20 MG TAB PO SCH (21:18)
[2021-02-07] MEDS: KETOROLAC 15 MG/ML 1 ML VIAL IVP PRN (22:33)
--- NOTE | 2021-02-07 23:41 | CONS ---
CONSULTATION DATE OF SERVICE: 02/07/2021 REASON FOR CONSULTATION: Cat bite cellulitis. HISTORY OF PRESENT ILLNESS: The patient is a 70-year-old female presenting to the ER early this morning for evaluation of the left arm cat bite cellulitis. The patient said it happened 2 days before presentation to hospital. Initially she was bitten by her ( ) cat on the left forearm, as well as on the right forearm and the lower extremity. The patient did have multiple ( ), however injury to the left forearm The patient presented initially to the ER yesterday morning, where the patient was evaluated. The patient has been given some pain medication and subsequently discharged home on oral Augmentin. However, that night the patient having worsening pain to the left forearm, described the pain to be throbbing, intensity almost 10/10 with no radiation with associated swelling and redness. The patient presented back to the ER early this morning around 3. The patient was re-evaluated by the ER physician. On presentation to the hospital this admission, the patient initially was afebrile. Subsequently she did spike a fever of 100.7 this evening. The patient did have a white count of 13.5 with left shift. Creatinine was normal. The patient did have blood cultures drawn, which is currently pending. The patient was started on Unasyn has been admitted to the hospital. Infectious Disease was consulted for further management of antibiotic therapy. The patient did have an x-ray of the hand did not show any acute abnormality. REVIEW OF SYSTEMS: Positive points have been mentioned in HPI. Rest of systems are negative. PAST MEDICAL HISTORY: No major illnesses. PAST SURGICAL HISTORY: Appendectomy. SOCIAL HISTORY: Denies smoking. Occasionally drinks, no drug use. FAMILY HISTORY: No pertinent findings noted. ALLERGIES: AZITHROMYCIN and LATEX. MEDICATIONS: The patient is currently on Tylenol, Unasyn 3 g q.8h, Pepcid, Tylenol, Narcan and IV fluid. PHYSICAL EXAMINATION: Her blood pressure 133/75, pulse of 90, temperature is 97.7. She is 93% on room air. GENERAL DESCRIPTION: Is an elderly female up in the bed in no distress. No tachypnea or accessory muscles of respiration use. HEENT: Examination shows no pallor or scleral icterus. Oral mucous membrane is dry. NECK: Trachea central, no thyromegaly. LUNGS: Unlabored breathing, clear to auscultation anteriorly. No wheeze or crackle. HEART: S1, S2. Regular rate and rhythm. ABDOMEN: Soft, no tenderness, no rigidity. EXTREMITIES: examination left arm did have an area of laceration with associated swelling and minimal redness and is painful to touch. She did have multiple elizondo on the right forearm and the right lower leg. The right leg had some cellulitis, not too much on the right forearm. NEUROLOGIC: The patient is awake, alert, oriented x3, affect normal. LABS: Hemoglobin is 13.1, white count 13.5. Labs showed BUN of 12, creatinine 0.37. DIAGNOSTIC IMPRESSION AND PLAN: Patient with acute cat bite cellulitis, more with the left upper extremity as well as the right medial leg area, currently with no evidence of any fluctuation or induration, with suspicion for underlying abscess. Failing outpatient oral Augmentin therapy, likely from the burden of disease. PLAN: 1. Unasyn dose to be adjusted to 3g q.6 hours. 2. Jorge the area of the redness. 3. Will repeat inflammatory markers and blood cultures in the morning. 4. We will follow on her clinical condition, to further adjust medication if needed. Thank you for this consultation. Will follow this patient along with you. MMODL / IJN: [id number] /
[2021-02-08] MEDS: AMPICILLIN-SULBACTAM 3 GM in SODIUM CHLORIDE 0.9% 100 ML IVPB SCH ×3 (01:08→12:25)
[2021-02-08] MEDS: SODIUM CHLORIDE 0.9% 1,000 ML IV SCH (06:01)
[2021-02-08 06:12] LABS: Basophils % (A) 0 %; Eosinophils # (A) 0.1 k/uL (0-0.7); Eosinophils % (A) 2 %; HCT 34.1 % (34.0-46.0); HGB 11.9 gm/dL (11.4-16.0); Lymphocytes # (A) 1.5 k/uL (1.0-4.8); Lymphocytes % (A) 19 %; MCHC 34.9 g/dL (31.0-37.0); MCV 88.9 fL (80.0-100.0); Monocytes # (A) 0.6 k/uL (0-1.0); Monocytes % (A) 8 %; Neutrophils # (A) 5.5 k/uL (1.3-7.7); Neutrophils % (A) 70 %; Platelet Count 227 k/uL (150-450); RBC 3.84 m/uL (3.80-5.40); RDW 12.9 % (11.5-15.5); WBC 7.8 k/uL (3.8-10.6)
[2021-02-08 06:25] LABS: African American GFR (CKD) >90 (>60 ml/min/1.73 sqM); Anion Gap 5 mmol/L; Blood Urea Nitrogen 6 mg/dL (7-17); Calcium 8.7 mg/dL (8.4-10.2); Carbon Dioxide 25 mmol/L (22-30); Chloride 105 mmol/L (98-107); Glucose 96 mg/dL (74-99); Non-African American GFR(CKD) >90 (>60 ml/min/1.73 sqM); Potassium 3.8 mmol/L (3.5-5.1); Sodium 135 mmol/L (137-145)
[2021-02-08 06:38] LABS: C Reactive Protein 14.8 mg/dL (<1.0)
[2021-02-08 08:00] VITALS: BP 124/73; PULSE 74; RESP 16; TEMP 97.9
[2021-02-08] MEDS: FAMOTIDINE 20 MG TAB PO SCH (09:18)
[2021-02-08] MEDS: KETOROLAC 15 MG/ML 1 ML VIAL IVP PRN (09:27)
--- NOTE | 2021-02-08 14:47 | PN ---
PROGRESS NOTE DATE OF SERVICE: 02/08/2021 REASON FOR FOLLOWUP: Cat bite cellulitis left arm. INTERVAL HISTORY: The patient is afebrile. The patient is feeling better. The patient's left arm swelling and redness has improved and the pain has decreased in intensity. The patient overall is feeling better. No drainage. No chest pain, shortness of breath or cough. The right upper leg swelling and redness has decreased as well and the patient wants to go home. PHYSICAL EXAMINATION: Her blood pressure 124/73 with a pulse of 94, temperature 97.9. She is 95% on room air. General description is an elderly female lying in bed in no distress. Respiratory system: Unlabored breathing. Clear to auscultation anteriorly. Heart S1, S2. Regular rate and rhythm. Abdomen soft, no tenderness. Left forearm and right leg swelling and redness have decreased. No drainage. LABS: Hemoglobin is 11.1, white count 7.8. BUN of 6, creatinine 0.37. DIAGNOSTIC IMPRESSION AND PLAN: Patient with left lower extremity and right leg cat bite cellulitis. Overall improvement on IV Unasyn. Patient is insisting on going home. She will be continued on oral Augmentin 875 mg b.i.d. for 10 days and close outpatient followup. Discussed with the nurse practitioner working on discharge. MMODL / IJN: [id number] /
--- NOTE | 2021-02-09 02:57 | P.DS ---
Providers Date of admission: 02/07/21 03:03 Expected date of discharge: 02/08/21 Attending physician: Eliza Reyes Consults: 02/07/21 14:31 Consult Physician Urgent Consulting Provider: Magnolia Bowen Consult Reason/Comments: cat bite Do you want consulting provider notified?: Yes Primary care physician: Erik Cortes [facility] Course: Final Diagnosis -Cat scratch cellulitis of bilateral upper extremities -hypervolemic hyponatremia -Leukocytosis due to assessment #1 -DVT prophylaxis -full code Discharge disposition Patient is being discharged in a stable condition with guarded prognosis to home. Patient will follow-up with Dr. Cortes upon discharge. Patient will also follow up with infectious disease in the clinic. Patient will continue on a short course of oral antibiotics in the form of Augmentin twice daily for 10 days. Total time taken is greater than 35 minutes. Hospital Course This is a 70-year-old female who was recently admitted with cat scratches to the left and right upper extremities along with the right lower extremity and was being closely monitored. INfectious disease following and will continue with Augmentin twice daily for 10 days and local wound care and also ice to the area as needed and elevating the extremities often. Patient reports a reduction in the swelling and able to move and feel all fingers on the left hand and denies any tingling or numbness. Patient to use tylenol or motrin or toradol for pain. Currently no reports of chest pain, shortness of breath, or palpitations. Patient is afebrile. No reports of nausea or vomiting and patient is tolerating diet. Patient will be discharged home today. On exam vital signs are stable. Cardio S1, S2 are muffled. Respiratory shows diminished breath sounds at the bases with no wheezing or rhonchi noted. Abdomen is soft and nontender. Nervous system shows no focal deficits. Please refer to medication reconciliation sheet for a list of medications. Patient Condition at Discharge: Good Plan - Discharge Summary Discharge Rx Participant: Yes New Discharge Prescriptions: New Famotidine [Pepcid] 20 mg PO BID #30 tab Ketorolac [Toradol] 10 mg PO Q6HR PRN #12 tab PRN Reason: Pain Acetaminophen Tab [Tylenol] 650 mg PO Q6HR PRN #30 tab PRN Reason: Mild Pain Or Fever > 100.5 Continue Amoxicillin/Potassium Clav [Augmentin 875-125 Tablet] 1 tab PO Q12HR 10 Days #20 tab Discharge Medication List Acetaminophen Tab [Tylenol] 650 mg PO Q6HR PRN #30 tab 02/08/21 [Rx] Amoxicillin/Potassium Clav [Augmentin 875-125 Tablet] 1 tab PO Q12HR 10 Days #20 tab 02/08/21 [Rx] Famotidine [Pepcid] 20 mg PO BID #30 tab 02/08/21 [Rx] Ketorolac [Toradol] 10 mg PO Q6HR PRN #12 tab 02/08/21 [Rx] Follow up Appointment(s)/Referral(s): Erik Cortse MD [Primary Care Provider] - 1-2 days Patient Instructions/Handouts: Animal Bite (ED) Activity/Diet/Wound Care/Special Instructions: Activity Limited until follow-up Follow-up with primary care provider upon discharge Continue with Augmentin for the next 10 days Continue Toradol and/or Tylenol for pain Continue current diet Continue to elevate the left upper extremity while at rest Continue to ice as needed Discharge Disposition: HOME SELF-CARE
== END 2021-02-08 14:23 | disposition home or self-care (01) ==
LOC: EC 00:42 → 6NMEDSUR 03:03
PROVIDERS: ADMIT Hospitalist; ATTEND Hospitalist
DX: L03.114 Cellulitis of left upper limb (principal); L03.113 Cellulitis of right upper limb; L03.115 Cellulitis of right lower limb; S61.452A Open bite of left hand, initial encounter; E87.1 Hypo-osmolality and hyponatremia; E86.1 Hypovolemia; M19.042 Primary osteoarthritis, left hand; W55.01XA Bitten by cat, initial encounter; W55.03XA Scratched by cat, initial encounter; Z88.1 Allergy status to other antibiotic agents; Z91.040 Latex allergy status; Z90.49 Acquired absence of other specified parts of digestive tract
CPT/HCPCS: 96376; 96361 ×2; 96366 ×2; 96375; 96365; 99284; 80048 ×2; 85652; 85025 ×2; 86140; 87040; 73130; G0378 ×2; J0295 ×2; J1885 ×2

== ENCOUNTER → 2021-10-10 | Outpatient (CLI) | payer MEDICARE ==
--- NOTE | 2021-10-15 13:28 | MM ---
Reason for exam: screening (asymptomatic). Last mammogram was performed 1 year ago. History: Patient is postmenopausal and is nulliparous. Family history of breast cancer in mother at age 85. Benign excisional biopsy of the right breast, November 13, 2006. Benign excisional biopsy of the left breast, 1994. Physical Findings: A clinical breast exam by your physician is recommended on an annual basis and results should be correlated with mammographic findings. MG 3D Screening Mammo W/Cad Bilateral CC and MLO view(s) were taken. Prior study comparison: October 03, 2020, bilateral MG 3d screening mammo w/cad. September 02, 2019, bilateral MG 3d screening mammo w/cad. The breast tissue is heterogeneously dense. This may lower the sensitivity of mammography. There are benign appearing round calcifications bilaterally. There is no discrete abnormality. ASSESSMENT: Benign, BI-RAD 2 RECOMMENDATION: Routine screening mammogram of both breasts in 1 year.
== END | disposition home or self-care (01) ==
LOC: RADMAMWWP 13:13
PROVIDERS: ATTEND Obstetrics & Gynecology
DX: Z12.31 Encounter for screening mammogram for malignant neoplasm of breast (principal); Z78.0 Asymptomatic menopausal state; Z80.3 Family history of malignant neoplasm of breast
CPT/HCPCS: 77063; 77067

== ENCOUNTER 2022-01-19 23:58 | Emergency (ER) | payer MEDICARE ==
[2022-01-20 00:21] VITALS: TEMP 98.1
--- NOTE | 2022-01-20 01:46 | ED ---
General Adult HPI - General Chief complaint: Dizziness Stated complaint: Fever, dizziness Time Seen by Provider: 01/20/22 01:15 Source: patient Mode of arrival: ambulatory Limitations: no limitations - History of Present Illness Initial comments: This patient is 71-year-old woman presenting with complaint that she is not feeling well and noted fever tonight. The patient complains of malaise and discomfort. She has had approximately 1 day of nonproductive cough. Tonight she developed fever. Denies other specific symptoms. Onset/Timin -: days(s) Improves with: none Worsens with: none Associated Symptoms: cough, fever/chills, malaise Treatments Prior to Arrival: none - Related Data Previous Rx's Medication Instructions Recorded Acetaminophen Tab [Tylenol] 650 mg PO Q6HR PRN #30 tab 02/08/21 Amoxicillin/Potassium Clav 1 tab PO Q12HR 10 Days #20 tab 02/08/21 [Augmentin 875-125 Tablet] Famotidine [Pepcid] 20 mg PO BID #30 tab 02/08/21 Ketorolac [Toradol] 10 mg PO Q6HR PRN #12 tab 02/08/21 Allergies Allergy/AdvReac Type Severity Reaction Status Date / Time azithromycin Allergy Unknown Verified 01/20/22 00:21 [From Zithromax Z-Alex] latex Allergy Rash/Hives Verified 01/20/22 00:21 Review of Systems ROS Statement: Those systems with pertinent positive or pertinent negative responses have been documented in the HPI. ROS Other: All systems not noted in ROS Statement are negative. Constitutional: Reports: fever Eyes: Denies: eye discharge ENT: Reports: congestion. Denies: throat pain Respiratory: Reports: cough. Denies: dyspnea, wheezes, hemoptysis Cardiovascular: Denies: chest pain, palpitations, edema Gastrointestinal: Denies: abdominal pain, vomiting, diarrhea Genitourinary: Denies: dysuria Musculoskeletal: Denies: back pain Skin: Denies: rash Neurological: Denies: headache, weakness Past Medical History Past Medical History: No Reported History History of Any Multi-Drug Resistant Organisms: None Reported Past Surgical History: Appendectomy Past Anesthesia/Blood Transfusion Reactions: No Reported Reaction Past Psychological History: No Psychological Hx Reported Smoking Status: Never smoker Past Alcohol Use History: Occasional Past Drug Use History: None Reported General Exam Limitations: no limitations General appearance: alert, in no apparent distress Head exam: Present: atraumatic, normocephalic Eye exam: Present: normal appearance. Absent: scleral icterus, conjunctival injection Neck exam: Present: normal inspection, full ROM. Absent: lymphadenopathy Respiratory exam: Present: normal lung sounds bilaterally. Absent: respiratory distress, wheezes, rales, rhonchi, stridor Cardiovascular Exam: Present: regular rate, normal rhythm, normal heart sounds. Absent: systolic murmur, diastolic murmur, rubs, gallop GI/Abdominal exam: Present: soft. Absent: distended, tenderness, guarding, rebound, rigid, mass Extremities exam: Present: normal inspection, normal capillary refill. Absent: pedal edema, calf tenderness Back exam: Present: normal inspection. Absent: CVA tenderness (R), CVA tenderness (L) Neurological exam: Present: alert Skin exam: Present: warm, dry, intact, normal color. Absent: rash Course Vital Signs 01/20/22 00:17 Temperature 98.1 F Pulse Rate 94 Respiratory 16 Rate Blood Pressure 140/73 O2 Sat by Pulse 95 Oximetry Medical Decision Making - Lab Data Lab Results 01/20/22 01/20/22 Range/Units 00:23 00:23 Coronavirus (PCR) Detected A (Not Detectd) Influenza Type A RNA Not Detected (Not Detectd) Influenza Type B (PCR) Not Detected (Not Detectd) Disposition Clinical Impression: COVID-19 Disposition: HOME SELF-CARE Condition: Good Instructions (If sedation given, give patient instructions): COVID-19 (Coronavirus Disease 2019) (ED) Is patient prescribed a controlled substance at d/c from ED?: No Referrals: Erik Cortes MD [Primary Care Provider] - 1-2 days Time of Disposition: 02:00
[2022-01-20] MEDS ORDERED: BEBTELOVIMAB (EUA) 175 MG/2 ML VIAL IV ONE (02:30)
[2022-01-20 05:51] VITALS: RESP 18
[2022-01-20 05:54] VITALS: BP 142/86; PULSE 80
== END 2022-01-20 05:54 | disposition home or self-care (01) ==
LOC: EC 23:58
DX: U07.1 COVID-19 (principal); Z91.040 Latex allergy status; Z88.0 Allergy status to penicillin
CPT/HCPCS: 99284; 87502; 87635; M0222; Q0222

== ENCOUNTER → 2022-10-17 | Outpatient (CLI) | payer MEDICARE ==
--- NOTE | 2022-10-17 11:14 | BD ---
EXAMINATION TYPE: Axial Bone Density DATE OF EXAM: 10/17/2022 CLINICAL HISTORY: 71 years old Female. ICD-10 CODE: Z78.0 POST MENOPAUSAL WITHOUT HRT,M85.88 DISORDE R OF BONE Height: 60in Weight: 162lb FRAX RISK QUESTIONS: Secondary Osteoporosis: RISK FACTORS HISTORY OF: Active: yes Postmenopausal woman: yes MEDICATIONS: Additional Medications: vitamin d Additional History: EXAM MEASUREMENTS: Bone mineral densitometry was performed using the [employer] System. Bone mineral density as measured about the Lumbar spine is: ----- L1-L4(G/cm2): 1.080 T Score Values are as follows: ----- L1: -1.5 ----- L2: -0.6 ----- L3: -0.6 ----- L4: -0.9 ----- L1-L4: -0.8 Z Score Values are as follows: ----- L1: 0.0 ----- L2: 0.8 ----- L3: 0.9 ----- L4: 0.5 ----- L1-L4: 0.6 Bone mineral density has: Decreased -3.2% since study of: 10-03-20 Bone mineral density about the R hip (g/cm2): 0.909 Bone mineral density about the L hip (g/cm2): 0.810 T Score values are as follows: -----R Neck: -1.5 -----L Neck: -2.3 -----R Total: -0.8 -----L Total: -1.6 Z Score values are as follows: -----R Neck: 0.1 -----L Neck: -0.7 -----R Total: 0.7 -----L Total: -0.1 Bone mineral density has: Decreased -4.3% since study of: 10-03-20 FRAX%s: The graph provided illustrates a 14.5% chance for a major osteoporotic fx and a 4% chance for the hips probability for fx in 10 years time. IMPRESSION: Osteopenia (T Score between -2.5 and -1). There is slightly increased risk of fracture and the patient may be considered for treatment. Re-Screen 2-5 years. NOTE: T-SCORE=SD OF THE YOUNG ADULT MEAN.
--- NOTE | 2022-10-20 07:50 | MM ---
Reason for Exam: Screening (asymptomatic). Last screening mammogram was performed 12 month(s) ago. Patient History: Menarche at age 9. Patient has no children. Postmenopausal. 11/13/2006, Benign Excisional Biopsy on the right side. 1994, Benign Excisional Biopsy on the left side. Mother had breast cancer, age 85. Risk Values: Haley 5 year model risk: 4.5%. NCI Lifetime model risk: 10.7%. Prior Study Comparison: 09/02/2019 Bilateral Screening Mammogram, [facility]. 10/03/2020 Bilateral Screening Mammogram, [facility]. 10/10/2021 Bilateral Screening Mammogram, [facility]. Tissue Density: The breast tissue is heterogeneously dense. This may lower the sensitivity of mammography. Findings: Analyzed By CAD. There is no suspicious group of microcalcifications or new suspicious mass in either breast. Overall Assessment: Negative, BI-RAD 1 Management: Screening Mammogram of both breasts in 1 year. A clinical breast exam by your physician is recommended on an annual basis and results should be correlated with mammographic findings. Electronically signed and approved by: Jacob Owens M.D. Radiologis
== END | disposition home or self-care (01) ==
LOC: RADMAMWWP 10:13
PROVIDERS: ATTEND Obstetrics & Gynecology
DX: Z12.31 Encounter for screening mammogram for malignant neoplasm of breast (principal); M85.89 Other specified disorders of bone density and structure, multiple sites; Z80.3 Family history of malignant neoplasm of breast; Z78.0 Asymptomatic menopausal state
CPT/HCPCS: 77063; 77067; 77080

== ENCOUNTER 2023-05-15 12:10 | Day surgery (SDC) | payer MEDICARE ==
[~2023-05-15 12:10] MED LIST: LACTATED RINGERS 1,000 ML IV SCH; LIDOCAINE 1% (10MG/ML) FOR IV START INTRADERMA PRN
[2023-05-15 13:27] VITALS: RESP 16; TEMP 98
[2023-05-15] MEDS ORDERED: PROPOFOL 10 MG/ML 20 ML VIAL IV ONE (13:54)
--- NOTE | 2023-05-15 14:14 | P.PCN ---
Date of Procedure: 05/15/23 Procedure(s) Performed: BRIEF HISTORY: Patient is a 72-year-old pleasant female scheduled for an elective colonoscopy as a part of screening for colon cancer/positive cologuard. PROCEDURE PERFORMED: Colonoscopy with snare polypectomy. PREOPERATIVE DIAGNOSIS: Screening for colon cancer/positive cologuard. . IV sedation per Anesthesia. PROCEDURE: After informed consent was obtained, the patient, was brought into the endoscopy unit. IV sedation was administered by Anesthesia under continuous monitoring. Digital rectal examination was normal. Initially the Olympus CF-160 flexible video colonoscope was then inserted in the rectum, gradually advanced into the cecum without any difficulty. Careful examination was performed as the scope was gradually being withdrawn. Ileocecal valve and the appendiceal orifice were visualized and appeared normal. Prep was excellent. Mucosa of the cecum, ascending colon, transverse colon, appeared normal. In the descending colon there was a 2 cm pedunculated polyp at 45 cm from the anal verge is post polypectomy. Rest of the descending colon, sigmoid colon, and rectum appeared normal. Retroflexion was performed in the rectum and no lesions were seen. The patient tolerated the procedure well. IMPRESSION: 2 cm descending colon polyp at 45 cm from the anal verge status post polypectomy Rest of the colon appeared normal RECOMMENDATIONS: Findings of this examination were discussed with the patient as well as her family. She was advised to follow with the biopsy results.. The biopsy results adenoma she can have a repeat colonoscopy in 3 years.
[2023-05-15 15:00] VITALS: BP 140/68; PULSE 79
== END 2023-05-15 15:06 | disposition home or self-care (01) ==
LOC: ORWHC2ENDO 12:10
PROVIDERS: ATTEND Internal Medicine Gastroenterology
DX: D12.4 Benign neoplasm of descending colon (principal); K21.9 Gastro-esophageal reflux disease without esophagitis; M19.90 Unspecified osteoarthritis, unspecified site; Z79.899 Other long term (current) drug therapy; Z91.040 Latex allergy status
CPT/HCPCS: 88305; 45385; J2704

== ENCOUNTER 2023-07-21 08:36 | Emergency (ER) | payer MEDICARE ==
[2023-07-21 09:06] VITALS: BP 149/74; PULSE 109; RESP 18; TEMP 99.1
--- NOTE | 2023-07-21 09:38 | XR ---
EXAMINATION TYPE: XR chest 2V DATE OF EXAM: 07/21/2023 9:25 AM CLINICAL INDICATION:Female, 72 years old with history of cough; [facility] COMPARISON: Chest radiographs from 12/08/2018 TECHNIQUE: XR chest 2V Frontal and lateral views of the chest. FINDINGS: Lungs/Pleura: There is no evidence of pleural effusion, focal consolidation, or pneumothorax. Pulmonary vascularity: Unremarkable. Heart/mediastinum: Cardiomediastinal silhouette is unremarkable. Musculoskeletal: No acute osseous pathology. IMPRESSION: No acute cardiopulmonary disease/process.
--- NOTE | 2023-07-21 09:41 | ED ---
URI HPI - General Chief Complaint: Upper Respiratory Infection Stated Complaint: Bodyaches, Chest Congestion Time Seen by Provider: 07/21/23 08:54 Source: patient, RN notes reviewed Mode of arrival: ambulatory Limitations: no limitations - History of Present Illness Initial Comments: 72-year-old female presents emergency department tingling cough and cold like symptoms. Patient states symptoms started last few days she states that she has had some diarrhea, nausea. Denies any sick contacts she reports fever at home no recent Tylenol Motrin. Denies any other associated complaints - Related Data Home Medications Medication Instructions Recorded Confirmed Unk Multi Vitamin 1 tab PO DAILY 05/13/23 05/13/23 Unk Vitamin B6 1 tab PO DAILY 05/13/23 05/13/23 Unk Vitamin D3 1 tab PO DAILY 05/13/23 05/13/23 Allergies Allergy/AdvReac Type Severity Reaction Status Date / Time azithromycin Allergy Unknown Verified 07/21/23 08:53 [From Zithromax Z-Alex] latex Allergy Rash/Hives Verified 07/21/23 08:53 shrimp Allergy stomach Verified 07/21/23 08:53 pains n/v Review of Systems ROS Statement: Those systems with pertinent positive or pertinent negative responses have been documented in the HPI. ROS Other: All systems not noted in ROS Statement are negative. Past Medical History Past Medical History: GERD/Reflux, Osteoarthritis (OA) Additional Past Medical History / Comment(s): + cologard History of Any Multi-Drug Resistant Organisms: None Reported Past Surgical History: Appendectomy, Tonsillectomy Additional Past Surgical History / Comment(s): colonoscopy, Past Anesthesia/Blood Transfusion Reactions: No Reported Reaction Past Psychological History: No Psychological Hx Reported Smoking Status: Never smoker Past Alcohol Use History: Rare Past Drug Use History: None Reported - Past Family History Brother(s) Family Medical History: Coronary Artery Disease (CAD) General Exam Limitations: no limitations General appearance: alert, in no apparent distress Head exam: Present: atraumatic, normocephalic, normal inspection Eye exam: Present: normal appearance, PERRL, EOMI. Absent: scleral icterus, conjunctival injection, periorbital swelling ENT exam: Present: normal exam, normal oropharynx, mucous membranes moist Neck exam: Present: normal inspection, full ROM. Absent: tenderness, meningismu s, lymphadenopathy Respiratory exam: Present: normal lung sounds bilaterally. Absent: respiratory distress, wheezes, rales, rhonchi, stridor Cardiovascular Exam: Present: normal rhythm, tachycardia, normal heart sounds. Absent: systolic murmur, diastolic murmur, rubs, gallop, clicks GI/Abdominal exam: Present: soft, normal bowel sounds. Absent: distended, tenderness, guarding, rebound, rigid Course Vital Signs 07/21/23 07/21/23 08:50 09:57 Temperature 99.1 F Pulse Rate 109 H Respiratory 18 18 Rate Blood Pressure 149/74 O2 Sat by Pulse 93 L Oximetry Medical Decision Making - Medical Decision Making Was pt. sent in by a medical professional or institution (, SHA, DRY DRUG WORKER, urgent care, hospital, or alf...) When possible be specific @ -No Did you speak to anyone other than the patient for history (EMS, parent, family, police, friend...)? What history was obtained from this source @ -No Did you review nursing and triage notes (agree or disagree)? Why? @ -I reviewed and agree with nursing and triage notes Were old charts reviewed (outside hosp., previous admission, EMS record, old EKG, old radiological studies, urgent care reports/EKG's, alf records)? Report findings @ -No old charts were reviewed Differential Diagnosis (chest pain, altered mental status, abdominal pain women, abdominal pain men, vaginal bleeding, weakness, fever, dyspnea, syncope, headache, dizziness, GI bleed, back pain, seizure, CVA, palpatations, mental health, musculoskeletal)? @ -nCOVID 19, RSV, influenza, pneumonia, acute bronchitis, URI, this list is not all inclusive EKG interpreted by me (3pts min.). @ -[None X-rays interpreted by me (1pt min.). @ -Chest x-ray shows no acute process CT interpreted by me (1pt min.). @ -None done U/S interpreted by me (1pt. min.). @ -None done What testing was considered but not performed or refused? (CT, X-rays, U/S, labs)? Why? @ -None What meds were considered but not given or refused? Why? @ -None Did you discuss the management of the patient with other professionals (professionals i.e. Dr., PA, DRY DRUG WORKER, lab, RT, psych nurse, social media marketing analyst, wafer polisher, teacher, facilities officer, business case analyst)? Give summary @ -No Was smoking cessation discussed for >3mins.? @ -No Was critical care preformed (if so, how long)? @ -No Were there social determinants of health that impacted care today? How? (Homelessness, low income, unemployed, alcoholism, drug addiction, transportation, low edu. Level, literacy, decrease access to med. care, custodial, rehab)? @ -No Was there de-escalation of care discussed even if they declined (Discuss DNR or withdrawal of care, Hospice)? DNR status @ -No What co-morbidities impacted this encounter? (DM, HTN, Smoking, COPD, CAD, Cancer, CVA, ARF, Chemo, Hep., AIDS, mental health diagnosis, sleep apnea, morbid obesity)? @ -None Was patient admitted / discharged? Hospital course, mention meds given and route, prescriptions, significant lab abnormalities, going to OR and other pertinent info. @ -Discharge patient is COVID-19 positive will be discharged in stable condition patient agrees to plan discharge in stable with close follow-up Undiagnosed new problem with uncertain prognosis? @ -No Drug Therapy requiring intensive monitoring for toxicity (Heparin, Nitro, Insulin, Cardizem)? @ -No Were any procedures done? @ -No Diagnosis/symptom? @ -COVID-19 Acute, or Chronic, or Acute on Chronic? @ -Acute Uncomplicated (without systemic symptoms) or Complicated (systemic symptoms)? @ -[Uncomplicated Side effects of treatment? @ -No Exacerbation, Progression, or Severe Exacerbation? @ -No Poses a threat to life or bodily function? How? (Chest pain, [place], [place], pneumonia, PE, COPD, DKA, ARF, appy, cholecystitis, CVA, Diverticulitis, Homicidal, Suicidal, threat to staff... and all critical care pts) @ -No - Lab Data Lab Results 07/21/23 Range/Units 09:05 Influenza Type A (PCR) Not Detected (Not Detectd) Influenza Type B (PCR) Not Detected (Not Detectd) RSV (PCR) Not Detected (Not Detectd) SARS-CoV-2 (PCR) Detected A (Not Detectd) Disposition Clinical Impression: COVID-19 Disposition: HOME SELF-CARE Condition: Stable Instructions (If sedation given, give patient instructions): COVID-19 (Cor onavirus Disease 2019) (ED) Additional Instructions: Please return to the Emergency Department if symptoms worsen or any other concerns. Is patient prescribed a controlled substance at d/c from ED?: No Referrals: Erik Cortes MD [Primary Care Provider] - 1-2 days Time of Disposition: 10:02
== END 2023-07-21 10:30 | disposition home or self-care (01) ==
LOC: EC 08:36
DX: U07.1 COVID-19 (principal); Z88.1 Allergy status to other antibiotic agents; Z91.040 Latex allergy status; Z91.013 Allergy to seafood
CPT/HCPCS: 71046; 87636; 93005; 99283

== ENCOUNTER → 2023-10-20 | Outpatient (CLI) | payer MEDICARE ==
--- NOTE | 2023-10-22 00:12 | MM ---
Reason for Exam: Screening (asymptomatic). Last screening mammogram was performed 12 month(s) ago. Patient History: Menarche at age 9. Patient has no children. Postmenopausal. 11/13/2006, Benign Excisional Biopsy on the right side. 1994, Benign Excisional Biopsy on the left side. Mother had breast cancer, age 85. Risk Values: Haley 5 year model risk: 4.5%. NCI Lifetime model risk: 10.1%. Prior Study Comparison: 10/03/2020 Bilateral Screening Mammogram, [facility]. 10/10/2021 Bilateral Screening Mammogram, [facility]. 10/17/2022 Bilateral MG 3D screening mammo w/cad, [facility]. Tissue Density: There are scattered areas of fibroglandular density. Findings: Analyzed By CAD. The pattern is stable. No significant interval change. No suspicious groups of microcalcifications, spiculated or lobular masses, architectural distortion or other secondary signs of malignancy are mammographically apparent. Overall Assessment: Benign, BI-RAD 2 Management: Screening Mammogram of both breasts in 1 year. A negative mammogram report should not preclude additional follow up of suspicious palpable abnormalities. Patient should continue monthly self breast exam. A clinical breast exam by your physician is recommended on an annual basis and results should be correlated with mammographic findings. Electronically signed and approved by: David Love D.O. Radiologis
== END | disposition home or self-care (01) ==
LOC: RADMAMWWP 11:01
PROVIDERS: ATTEND Family Medicine
DX: Z12.31 Encounter for screening mammogram for malignant neoplasm of breast (principal); Z78.0 Asymptomatic menopausal state; Z80.3 Family history of malignant neoplasm of breast
CPT/HCPCS: 77063; 77067

== ENCOUNTER 2024-02-24 06:05 | Day surgery (SDC) | payer MEDICARE ==
[2024-02-23 10:29] VITALS: BMI 29.5
[~2024-02-24 06:05] MED LIST changes: +ALPRAZolam 0.25 MG TAB PO PRN; +ALPRAZolam 0.5 MG TAB PO PRN; +HEPARIN SODIUM,PORCINE (1 ML) 2,500 UNIT in SODIUM CHLORIDE 0.9% 250 ML IRRIGATION PRN; +HEPARIN SODIUM,PORCINE 10,000 UNIT in SODIUM CHLORIDE 0.9% 1,000 ML IRRIGATION PRN; -LACTATED RINGERS 1,000 ML IV SCH; -LIDOCAINE 1% (10MG/ML) FOR IV START INTRADERMA PRN; +NITROGLYCERIN SL TABS 0.4 MG TAB SUBLINGUAL PRN
[2024-02-24] MEDS: IV FLUID CONTINUATION 1,000 ML IV ONE (06:35)
[2024-02-24 06:45] VITALS: RESP 16; TEMP 97.1
[2024-02-24 06:55] LABS: Basophils % (A) 1 %; Eosinophils # (A) 0.3 k/uL (0-0.7); Eosinophils % (A) 3 %; HGB 13.3 gm/dL (11.4-16.0); Lymphocytes # (A) 2.4 k/uL (1.0-4.8); Lymphocytes % (A) 32 %; MCH 29.8 pg (25.0-35.0); MCHC 33.3 g/dL (31.0-37.0); MCV 89.6 fL (80.0-100.0); Mean Platelet Volume 6.8; Monocytes # (A) 0.4 k/uL (0-1.0); Monocytes % (A) 5 %; Neutrophils # (A) 4.4 k/uL (1.3-7.7); Neutrophils % (A) 58 %; Platelet Count 354 k/uL (150-450); RBC 4.46 m/uL (3.80-5.40); RDW 13.3 % (11.5-15.5); WBC 7.6 k/uL (3.8-10.6)
[2024-02-24] MEDS ORDERED: ATORVASTATIN 80 MG TAB PO ONE (07:00)
[2024-02-24 07:05] LABS: African American GFR (CKD) >90 (>60 ml/min/1.73 sqM); Anion Gap 7 mmol/L; Blood Urea Nitrogen 20 mg/dL (7-17); Calcium 9.2 mg/dL (8.4-10.2); Carbon Dioxide 23 mmol/L (22-30); Chloride 100 mmol/L (98-107); Glucose 106 mg/dL (74-99); Non-African American GFR(CKD) >90 (>60 ml/min/1.73 sqM); Potassium 4.6 mmol/L (3.5-5.1); Sodium 130 mmol/L (137-145)
[2024-02-24] MEDS: ASPIRIN 325 MG TAB PO ONE (07:11)
[2024-02-24] MEDS: SODIUM CHLORIDE 0.9% 1,000 ML in EMPTY BAG 1 BAG IV SCH (07:11)
[2024-02-24] MEDS ORDERED: VERAPAMIL 2.5 MG/ML 2 ML AMP ONE (07:14)
[2024-02-24] MEDS ORDERED: HEPARIN SODIUM 1,000 UN/ML (10ML VL) ONE (07:14)
[2024-02-24] MEDS ORDERED: LIDOCAINE 1% INJ 10MG/ML (20 ML MDV) ONE (07:14)
[2024-02-24] MEDS ORDERED: fentaNYL (PF) 50 MCG/ML 2 ML AMP ONE (07:14)
[2024-02-24] MEDS: HEPARIN SODIUM,PORCINE (1 ML) 2,500 UNIT in SODIUM CHLORIDE 0.9% 250 ML IRRIGATION ONE (07:17)
[2024-02-24] MEDS: HEPARIN SODIUM,PORCINE 10,000 UNIT in SODIUM CHLORIDE 0.9% 1,000 ML IRRIGATION ONE (07:17)
[2024-02-24] MEDS: fentaNYL (PF) 50 MCG/1 ML VIAL IVP ONE (08:03)
[2024-02-24] MEDS: LIDOCAINE 1% INJ 10MG/ML (20 ML MDV) SQ ONE (08:03)
[2024-02-24] MEDS: VERAPAMIL SYRINGE (5 MG/10 ML) INTRAARTER ONE (08:05)
[2024-02-24] MEDS: HEPARIN SODIUM 1,000 UN/ML (10ML VL) IVP ONE (08:07)
[2024-02-24] MEDS: IOPAMIDOL-370 100ML BTL INTRATHECA ONE (08:22)
[2024-02-24] MEDS ORDERED: RX INFO: IV CONTRAST WAS GIVEN 1 EACH MISC MISCELLANE PRN (08:26)
[2024-02-24] MEDS ORDERED: SODIUM CHLORIDE 0.9% 1,000 ML IV SCH (08:30)
--- NOTE | 2024-02-24 08:30 | P.CARDCATH ---
Date of Procedure: 02/24/24 Description of Procedure: Cardiac Catheterization: The patient is a 73-year-old female with no prior history of cardiac disease who presented with symptoms of new onset exertional chest discomfort and dyspnea getting worse. Recommendations were made regarding cardiac catheterization, the risks and the complications were discussed with the patient who is in full understanding and agreement. Procedure Description: Patient was brought to laborer demolition in fasting semi-sedated state after receiving Fentanyl and Benadryl achieiving moderate conscious sedated state. Using Xylocaine Anesthesia and modified Seldinger technique, a 6-Gabonese sheath was introduced in the right radial artery . Subsequently, selective coronary angiography was performed using a 5-Gabonese 3.5 bend Li catheter. Multiple views of the coronary artery including hemiaxial views were obtained. The 5 Gabonese pigtail catheter was used to cross the aortic valve and LVEDP was calculated. Following that, catheter and sheath were removed. Hemostasis was obtained with deployment of vascular band . There was no immediate complication. Patient was returned to room in stable condition. Of note, the patient received a total of 4000 units of intravenous heparin as well as intra-arterial verapamil. Findings: Left main: This is a short size vessel, bifurcating into LAD and left circumflex, left main has no significant obstructive disease LAD: This is a large size vessel, reaching to the apex, giving rise to 2 diagonal branch of small caliber, the LAD and its branches have no obstructive disease Left circumflex: This is a large nondominant vessel giving rise to a large obtuse marginal branch the left circumflex and its branches have no obstructive disease RCA: This is a large dominant vessel, bifurcating into PDA and PLV, the right coronary artery and its branches have no obstructive disease Left Ventriculogram: Not performed Hemodynamics: There was no gradient across the aortic valve, LVEDP was 14-16 mmHg Conclusion: 1. Normal coronary arteries 2. Right dominance 3. Normal LVEDP Recommendations: I have recommended to continue medical therapy, she will be evaluated for either etiology for her progressive dyspnea. The findings and the recommendations were discussed with the patient and the family and they were in full understanding and agreement. Duration of sedation is 15 minutes.
[2024-02-24] MEDS ORDERED: METOPROLOL TARTRATE 25 MG TAB PO SCH (09:00)
[2024-02-24] MEDS ORDERED: ASPIRIN 81 MG PO SCH (09:00)
[2024-02-24] MEDS ORDERED: ISOSORBIDE MONONITRATE ER 30 MG TAB.ER.24H PO SCH (09:00)
[2024-02-24 09:45] VITALS: PULSE 62
[2024-02-24 13:26] VITALS: BP 121/63
== END 2024-02-24 12:37 | disposition home or self-care (01) ==
LOC: CATHCVL 06:05
PROVIDERS: ATTEND Internal Medicine Interventional Cardiology
DX: R07.89 Other chest pain (principal); R06.00 Dyspnea, unspecified
CPT/HCPCS: 93458; 80048; 85025; C1769; J1644 ×3; J2001; Q9967; J3010

== ENCOUNTER → 2024-08-25 | Outpatient (CLI) | payer MEDICARE ==
[2024-08-25 14:42] LABS: Basophils # (A) 0.04 X 10*3/uL (0.00-0.10); Basophils % (A) 0.5 %; Eosinophils # (A) 0.17 X 10*3/uL (0.04-0.35); Eosinophils % (A) 2.2 %; HCT 42.1 % (37.2-46.3); HGB 13.9 g/dL (12.0-15.0); Lymphocytes # (A) 2.26 X 10*3/uL (0.90-5.00); MCH 29.8 pg (27.0-32.0); MCV 90.1 FL (80.0-97.0); Mean Platelet Volume 9.1 FL (9.5-12.2); Monocytes # (A) 0.47 X 10*3/uL (0.20-1.00); NRBC Per 100 WBC 0 X 10*3/uL (0.00-0.01); Neutrophils # (A) 4.82 X 10*3/uL (1.80-7.70); Platelet Count 341 X 10*3/uL (140-440); RBC 4.67 X 10*6/uL (4.10-5.20); WBC 7.78 X 10*3/uL (4.50-10.00)
[2024-08-25 15:00] LABS: Blood Urea Nitrogen 12.3 mg/dL (9.0-27.0); Carbon Dioxide 27.2 mmol/L (21.6-31.8); Chloride 104 mmol/L (96-109); Chol/HDL Ratio 3.26 Ratio; Creatine Kinase 45 U/L (26-186); Glucose 99 mg/dL (70-110); LDL Cholesterol,Calculated 154.5 mg/dL (0.0-131.0); Potassium 4.4 mmol/L (3.5-5.5); Sodium 140 mmol/L (135-145); VLDL Calculation 18.88 mg/dL (5.00-40.00)
[2024-08-25 15:01] LABS: ALT 30 U/L (8-44); AST 20 U/L (13-35); Albumin 4.5 g/dL (3.8-4.9); Albumin/Globulin Ratio 1.88 Ratio (1.60-3.17); Alkaline Phosphatase 73 U/L (41-126); Calcium 9.8 mg/dL (8.7-10.3); Globulin 2.4 g/dL (1.6-3.3); Total Bilirubin 0.3 mg/dL (0.3-1.2); Total Protein 6.9 g/dL (6.2-8.2)
== END ==
LOC: LABWHC1 10:18
PROVIDERS: ATTEND Family Medicine
DX: E78.5 Hyperlipidemia, unspecified (principal)
CPT/HCPCS: 36415; 80053; 80061; 82550; 83036; 85025

== ENCOUNTER → 2024-10-14 | Outpatient (CLI) | payer MEDICARE ==
[2024-10-15 02:49] LABS: Magnesium 2.2 mg/dL (1.5-2.4); T4, Free (Free Thyroxine) 1.12 ng/dL (0.80-1.80)
== END | disposition home or self-care (01) ==
LOC: LABWHC1 15:00
PROVIDERS: ATTEND Family Medicine
DX: K59.00 Constipation, unspecified (principal); R63.5 Abnormal weight gain
CPT/HCPCS: 36415; 83525; 83735; 84439; 84443

== ENCOUNTER → 2024-10-20 | Outpatient (CLI) | payer MEDICARE ==
--- NOTE | 2024-10-20 13:16 | MM ---
Reason for Exam: Screening (asymptomatic). Last screening mammogram was performed 12 month(s) ago. Patient History: Menarche at age 9. Patient has no children. Postmenopausal. 11/13/2006, Benign Excisional Biopsy on the right side. 1994, Benign Excisional Biopsy on the left side. Mother had breast cancer, age 85. Risk Values: Haley 5 year model risk: 4.5%. NCI Lifetime model risk: 9.5%. Prior Study Comparison: 07/30/2018 Bilateral Screening Mammogram, [facility]. 09/02/2019 Bilateral Screening Mammogram, [facility]. 10/03/2020 Bilateral Screening Mammogram, [facility]. 10/10/2021 Bilateral Screening Mammogram, [facility]. 10/17/2022 Bilateral MG 3D screening mammo w/cad, [facility]. 10/20/2023 Bilateral MG 3D screening mammo w/cad, [facility]. Tissue Density: The breasts are heterogeneously dense, which may obscure small masses. Findings: Analyzed By CAD. There is no suspicious group of microcalcifications or new suspicious mass in either breast. Overall Assessment: Benign, BI-RAD 2 Management: Screening Mammogram of both breasts in 1 year. . Patient should continue monthly self-breast exams. A clinical breast exam by your physician is recommended on an annual basis. This exam should not preclude additional follow-up of suspicious palpable abnormalities. Note on Haley scores and lifetime risk: 1. A Haley score greater than 3% is considered moderate risk. If this is the case, consider specialist referral to assess eligibility for a risk reducing agent. 2. If overall lifetime risk for the development of breast cancer is 20% or higher, the patient may qualify for future screening with alternating mammogram and breast MRI. [facility], , 10/20/2024 1:13 PM. Electronically signed and approved by: Erik Valencia M.D. Radiologis
--- NOTE | 2024-10-20 15:26 | BD ---
EXAMINATION TYPE: Axial Bone Density DATE OF EXAM: 10/20/2024 CLINICAL HISTORY: 73 years old Female. ICD-10 CODE: Z78.0 ASYMPTOMATIC MENOPAUSAL STATE , Additional History: Height: 59 Weight: 158.4 FRAX RISK QUESTIONS: Alcohol (3 or more units per day): no Family History (Parent hip fracture): no Glucocorticoids (More than 3mos): no (Ex: prednisone, prednisolone, methylprednisolone, dexamethasone, and hydrocortisone). History of Fracture in Adulthood: no Secondary Osteoporosis: 1. Type 1 Diabetes: no 2. Hyperthyroidism: no 3. Menopause before 45: no 4. Malnutrition: no 5. Chronic liver disease: no Rheumatoid Arthritis: no Current Tobacco Use: no RISK FACTORS HISTORY OF: Surgery to Spine/Hip(right/left)/Wrist (right/left): no EXAM MEASUREMENTS: Bone mineral densitometry was performed using the DTT System. Bone mineral density as measured about the Lumbar spine is: ----- L1-L4(G/cm2): 1.062 T Score Values are as follows: ----- L1: -2.0 ----- L2: -0.4 ----- L3: -1.1 ----- L4: -0.9 ----- L1-L4: -1.0 Z Score Values are as follows: ----- L1: -0.4 ----- L2: 1.2 ----- L3: 0.6 ----- L4: 0.5 ----- L1-L4: 0.6 Bone mineral density has: decreased -1.7 % since study of: 10.17.2022 Bone mineral density about the R hip (g/cm2): 0.879 Bone mineral density about the L hip (g/cm2): 0.824 T Score values are as follows: -----R Neck: -1.9 -----L Neck: -2.5 -----R Total: -1.0 -----L Total: -1.5 Z Score values are as follows: -----R Neck: -0.1 -----L Neck: -0.7 -----R Total: 0.6 -----L Total: -0.2 Bone mineral density has: decreased -1.0 % since study of: 3.24.2022 FRAX%s: The graph provided illustrates a 16.3% chance for a major osteoporotic fx and a 5.1% chance f or the hips probability for fx in 10 years time. IMPRESSION: Osteopenia (T Score between -2.5 and -1). There is slightly increased risk of fracture and the patient may be considered for treatment. Re-Screen 2-5 years. NOTE: T-SCORE=SD OF THE YOUNG ADULT MEAN. [facility], , 10/20/2024 3:24 PM
== END | disposition home or self-care (01) ==
LOC: RADBDWWP 12:26
PROVIDERS: ATTEND Family Medicine
DX: Z12.31 Encounter for screening mammogram for malignant neoplasm of breast (principal); M81.0 Age-related osteoporosis without current pathological fracture; R92.333 Mammographic heterogeneous density, bilateral breasts; M85.89 Other specified disorders of bone density and structure, multiple sites; Z78.0 Asymptomatic menopausal state; Z80.3 Family history of malignant neoplasm of breast
CPT/HCPCS: 77063; 77067; 77080